=== PATIENT | male | born 1955 | race Caucasian/White ===

== ENCOUNTER → 2021-07-13 | Outpatient (CLI) | payer MEDICARE ==
[~2021-07-13] MED LIST: ASPI81CH PO; Amlodipine Besyl5 MG PO; BYDUREON P2 MG/0.65 SQ; DIABETA PO; EXENATIDE SUBQ; lisinopril 10 mg tab PO
[2021-07-13 13:38] LABS: BASOPHILS ABSOLUTE AUTO 0.04 K/mm3 (0.00-0.23); BASOPHILS PERCENT AUTO 1 % (0-2); EOSINOPHILS ABSOLUTE AUTO 0.22 K/mm3 (0.00-0.68); EOSINOPHILS PERCENT AUTO 3 % (0-6); Hematocrit 37.2 % (37.0-53.0); Hemoglobin 11.7 g/dL (13.5-17.5); IMMATURE GRAN ABSOLUTE AUTO 0.01 K/mm3 (0.00-0.10); IMMATURE GRAN PERCENT AUTO 0 % (0-1); LYMPHOCYTES ABSOLUTE AUTO 1.04 K/mm3 (0.84-5.20); LYMPHOCYTES PERCENT AUTO 16 % (21-46); MONOCYTES ABSOLUTE AUTO 0.47 K/mm3 (0.16-1.47); MONOCYTES PERCENT AUTO 7 % (4-13); Mean Corpuscular HGB 29.3 pg (26.0-34.0); Mean Corpuscular HGB Conc 31.5 g/dL (31.5-36.5); Mean Corpuscular Volume 93 fL (80-100); Mean Platelet Volume 9.4 fL (9.1-12.4); NEUTROPHILS ABSOLUTE AUTO 4.84 K/mm3 (1.96-9.15); NEUTROPHILS PERCENT AUTO 73 % (41-73); Platelet Count 259 K/mm3 (150-400); RDW Coefficient Variation 12.6 % (11.7-14.2); RDW Standard Deviation 43.6 fL (35.1-46.3); Red Blood Cell Count 3.99 M/mm3 (4.30-5.90); White Blood Cell Count 6.62 K/mm3 (4.00-11.30)
[2021-07-13 14:28] LABS: Protein, Urine Random 889.2 mg/dL (0.0-11.9); Protein/Creat Ratio, Ur Random 6.2
[2021-07-13 16:26] LABS: Albumin, Blood 3.1 g/dL (3.4-5.0); Anion Gap 6 mmol/L (6-16); Blood Urea Nitrogen 23 mg/dL (8-24); Bun/Creatinine Ratio 8.1 (12.0-20.0); CO2, Blood 26 mmol/L (21-32); Calcium, Blood 8.8 mg/dL (8.5-10.1); Chloride, Blood 105 mmol/L (98-108); Creatinine, Blood 2.83 mg/dL (0.60-1.20); Glomerular Filtration Rate 22 (60-); Glucose, Blood 141 mg/dL (70-99); Phosphorus, Blood 4.1 mg/dL (2.5-4.9); Potassium, Blood 4.3 mmol/L (3.5-5.5); Sodium, Blood 137 mmol/L (136-145)
== END | disposition home or self-care (01) ==
LOC: LAB 12:57 → LAB SHORT 12:57
PROVIDERS: Internal Medicine
DX: N18.4 Chronic kidney disease, stage 4 (severe) (principal)
CPT/HCPCS: 36415; 80069; 82570; 84156; 85025

== ENCOUNTER 2021-09-26 16:40 | Emergency (ER) | payer MEDICARE ==
[~2021-09-26] VITALS: Ht 175.3 cm; Wt 81.7 kg
[2021-09-26 17:27] LABS: BASOPHILS ABSOLUTE AUTO 0.01 K/mm3 (0.00-0.23); BASOPHILS PERCENT AUTO 0 % (0-2); EOSINOPHILS ABSOLUTE AUTO 0.01 K/mm3 (0.00-0.68); EOSINOPHILS PERCENT AUTO 0 % (0-6); Hematocrit 36.5 % (37.0-53.0); Hemoglobin 12.4 g/dL (13.5-17.5); IMMATURE GRAN ABSOLUTE AUTO 0.02 K/mm3 (0.00-0.10); IMMATURE GRAN PERCENT AUTO 0 % (0-1); LYMPHOCYTES ABSOLUTE AUTO 0.46 K/mm3 (0.84-5.20); LYMPHOCYTES PERCENT AUTO 9 % (21-46); MONOCYTES ABSOLUTE AUTO 0.36 K/mm3 (0.16-1.47); MONOCYTES PERCENT AUTO 7 % (4-13); Mean Corpuscular Volume 88 fL (80-100); Mean Platelet Volume 9.8 fL (9.1-12.4); NEUTROPHILS ABSOLUTE AUTO 4.57 K/mm3 (1.96-9.15); NEUTROPHILS PERCENT AUTO 84 % (41-73); Platelet Count 262 K/mm3 (150-400); RDW Coefficient Variation 13.7 % (11.7-14.2); RDW Standard Deviation 42.8 fL (35.1-46.3); Red Blood Cell Count 4.14 M/mm3 (4.30-5.90); White Blood Cell Count 5.43 K/mm3 (4.00-11.30)
[2021-09-26] MEDS ORDERED: PANTOPRAZOLE SO40 M2 PO (18:20)
[2021-09-26] MEDS ORDERED: HYDCHL25 PO (18:21)
[2021-09-26] MEDS ORDERED: GLYB2.5 PO (18:22)
[2021-09-26 18:36] LABS: Influenza A, PCR NEGATIVE (NEGATIVE); Influenza B, PCR NEGATIVE (NEGATIVE); Resp Syncytial Virus, PCR NEGATIVE (NEGATIVE)
[2021-09-26 18:43] LABS: SARS-Cov-2 (COVID-19) PCR, MMC POSITIVE (NEGATIVE)
[2021-09-26 18:51] LABS: Source, Urine Clean Catch
[2021-09-26 18:54] LABS: Bilirubin, Urine Neg (Neg); Blood, Urine Neg (Neg); Glucose Qualitative, Urine Neg (Neg); Ketones, Urine Neg (Neg); Leukocyte Esterase, Urine Neg (Neg); Nitrite, Urine Neg (Neg); Protein, Urine 4+ (Neg); Urobilinogen, Urine NORM (Normal)
[2021-09-26 19:01] LABS: Appearance, Urine Hazy (Clear); Bacteria Many /hpf; Color, Urine Pale Yellow (P-Yellow); Red Blood Cells, Urine 0-2 /hpf (0-2); Squamous Epithelial Cells Few /hpf (Few); White Blood Cells, Urine 0-2 /hpf (0-5)
[2021-09-26 19:02] LABS: Mucus Light (0-Heavy)
[2021-09-26 19:54] LABS: Albumin, Blood 2.8 g/dL (3.4-5.0); Albumin/Globulin Ratio 0.6 (0.8-1.8); Bilirubin, Total 0.4 mg/dL (0.1-1.0); Bun/Creatinine Ratio 22.9 (12.0-20.0); Calcium, Blood 8.5 mg/dL (8.5-10.1); Creatinine, Blood 3.58 mg/dL (0.60-1.20); Globulin, Blood 4.5 g/dL (2.2-4.0); Phosphorus, Blood 4.3 mg/dL (2.5-4.9); Potassium, Blood 3.5 mmol/L (3.5-5.5); Total Protein, Blood 7.3 g/dL (6.4-8.2)
== END 2021-09-26 21:50 | disposition home or self-care (01) ==
LOC: ER 16:40
PROVIDERS: Physician Assistant
DX: U07.1 COVID-19 (principal); I12.9 Hypertensive chronic kidney disease with stage 1 through stage 4 chronic kidney disease, or unspecified chronic kidney disease; E11.22 Type 2 diabetes mellitus with diabetic chronic kidney disease; N18.9 Chronic kidney disease, unspecified; Z79.899 Other long term (current) drug therapy; Z79.82 Long term (current) use of aspirin
CPT/HCPCS: 0241U; 36415; 71045; 80053; 81001; 83690; 83735; 84100; 85025; 87086; 93005; 93010; 99284-25; J7030

== ENCOUNTER → 2021-09-30 | Outpatient (CLI) | payer MEDICARE ==
[~2021-09-30] MED LIST changes: +GLYB2.5 PO; +HYDCHL25 PO; +PANTOPRAZOLE SO40 M2 PO
[2021-09-30 15:01] LABS: BASOPHILS ABSOLUTE AUTO 0.01 K/mm3 (0.00-0.23); BASOPHILS PERCENT AUTO 0 % (0-2); EOSINOPHILS ABSOLUTE AUTO 0.02 K/mm3 (0.00-0.68); EOSINOPHILS PERCENT AUTO 0 % (0-6); Hematocrit 32.1 % (37.0-53.0); Hemoglobin 11.1 g/dL (13.5-17.5); IMMATURE GRAN ABSOLUTE AUTO 0.02 K/mm3 (0.00-0.10); IMMATURE GRAN PERCENT AUTO 0 % (0-1); LYMPHOCYTES ABSOLUTE AUTO 0.54 K/mm3 (0.84-5.20); LYMPHOCYTES PERCENT AUTO 8 % (21-46); MONOCYTES ABSOLUTE AUTO 0.33 K/mm3 (0.16-1.47); MONOCYTES PERCENT AUTO 5 % (4-13); Mean Corpuscular HGB 30.2 pg (26.0-34.0); Mean Corpuscular HGB Conc 34.6 g/dL (31.5-36.5); Mean Corpuscular Volume 87 fL (80-100); Mean Platelet Volume 12.7 fL (9.1-12.4); NEUTROPHILS ABSOLUTE AUTO 5.77 K/mm3 (1.96-9.15); NEUTROPHILS PERCENT AUTO 86 % (41-73); Platelet Count 149 K/mm3 (150-400); RDW Coefficient Variation 14.1 % (11.7-14.2); RDW Standard Deviation 42.4 fL (35.1-46.3); Red Blood Cell Count 3.68 M/mm3 (4.30-5.90); White Blood Cell Count 6.69 K/mm3 (4.00-11.30)
[2021-09-30 15:46] LABS: Albumin, Blood 2.6 g/dL (3.4-5.0); Albumin/Globulin Ratio 0.7 (0.8-1.8); Bilirubin, Total 0.4 mg/dL (0.1-1.0); Bun/Creatinine Ratio 19.2 (12.0-20.0); Calcium, Blood 8.1 mg/dL (8.5-10.1); Creatinine, Blood 3.13 mg/dL (0.60-1.20); Globulin, Blood 3.9 g/dL (2.2-4.0); Potassium, Blood 3.8 mmol/L (3.5-5.5); Total Protein, Blood 6.5 g/dL (6.4-8.2)
== END | disposition home or self-care (01) ==
LOC: LAB 14:56 → LAB SHORT 14:56
PROVIDERS: Physician Assistant
DX: E86.0 Dehydration (principal)
CPT/HCPCS: 80053; 85025

== ENCOUNTER → 2022-01-15 | Outpatient (CLI) | payer MEDICARE ==
[2022-01-15 13:53] LABS: BASOPHILS ABSOLUTE AUTO 0.04 K/mm3 (0.00-0.23); BASOPHILS PERCENT AUTO 1 % (0-2); EOSINOPHILS ABSOLUTE AUTO 0.24 K/mm3 (0.00-0.68); EOSINOPHILS PERCENT AUTO 4 % (0-6); Hematocrit 30.4 % (37.0-53.0); Hemoglobin 9.9 g/dL (13.5-17.5); IMMATURE GRAN ABSOLUTE AUTO 0.03 K/mm3 (0.00-0.10); IMMATURE GRAN PERCENT AUTO 1 % (0-1); LYMPHOCYTES ABSOLUTE AUTO 1.17 K/mm3 (0.84-5.20); LYMPHOCYTES PERCENT AUTO 19 % (21-46); MONOCYTES ABSOLUTE AUTO 0.55 K/mm3 (0.16-1.47); MONOCYTES PERCENT AUTO 9 % (4-13); Mean Corpuscular HGB 31.9 pg (26.0-34.0); Mean Corpuscular HGB Conc 32.6 g/dL (31.5-36.5); Mean Corpuscular Volume 98 fL (80-100); Mean Platelet Volume 10.1 fL (9.1-12.4); NEUTROPHILS ABSOLUTE AUTO 4.11 K/mm3 (1.96-9.15); NEUTROPHILS PERCENT AUTO 67 % (41-73); Platelet Count 232 K/mm3 (150-400); RDW Coefficient Variation 12.9 % (11.7-14.2); RDW Standard Deviation 45.8 fL (35.1-46.3); White Blood Cell Count 6.14 K/mm3 (4.00-11.30)
[2022-01-15 15:54] LABS: Albumin, Blood 3.6 g/dL (3.4-5.0); Anion Gap 9 mmol/L (6-16); Blood Urea Nitrogen 55 mg/dL (8-24); Bun/Creatinine Ratio 12.7 (12.0-20.0); CO2, Blood 19 mmol/L (21-32); Calcium, Blood 8.8 mg/dL (8.5-10.1); Chloride, Blood 106 mmol/L (98-108); Creatinine, Blood 4.34 mg/dL (0.60-1.20); Glomerular Filtration Rate 14 (60-); Glucose, Blood 210 mg/dL (70-99); Phosphorus, Blood 5.9 mg/dL (2.5-4.9); Potassium, Blood 4.6 mmol/L (3.5-5.5); Sodium, Blood 134 mmol/L (136-145)
== END | disposition home or self-care (01) ==
LOC: LAB SHORT 13:11
PROVIDERS: Internal Medicine Nephrology
DX: I12.9 Hypertensive chronic kidney disease with stage 1 through stage 4 chronic kidney disease, or unspecified chronic kidney disease (principal); N18.4 Chronic kidney disease, stage 4 (severe)
CPT/HCPCS: 36415; 80069; 85025

== ENCOUNTER → 2022-04-07 | Outpatient (CLI) | payer MEDICARE | END | disposition home or self-care (01) | LOC: PLD 08:44 → LAB SHORT 08:44 | DX: D49.2 Neoplasm of unspecified behavior of bone, soft tissue, and skin (principal) | CPT/HCPCS: 88305 ==

== ENCOUNTER 2022-05-13 22:23 | Inpatient (IN) | payer MEDICARE ==
[~2022-05-13] VITALS: Ht 172.7 cm; Wt 89.5 kg
[~2022-05-13 22:23] MED LIST changes: +AMLO10 PO; -Amlodipine Besyl5 MG PO
[2022-05-13 22:43] LABS: BASOPHILS ABSOLUTE AUTO 0.01 K/mm3 (0.00-0.23); BASOPHILS PERCENT AUTO 0 % (0-2); EOSINOPHILS ABSOLUTE AUTO 0.01 K/mm3 (0.00-0.68); EOSINOPHILS PERCENT AUTO 0 % (0-6); Hematocrit 29.4 % (37.0-53.0); Hemoglobin 9.8 g/dL (13.5-17.5); IMMATURE GRAN ABSOLUTE AUTO 0.02 K/mm3 (0.00-0.10); IMMATURE GRAN PERCENT AUTO 0 % (0-1); LYMPHOCYTES ABSOLUTE AUTO 0.39 K/mm3 (0.84-5.20); LYMPHOCYTES PERCENT AUTO 5 % (21-46); MONOCYTES ABSOLUTE AUTO 0.27 K/mm3 (0.16-1.47); MONOCYTES PERCENT AUTO 4 % (4-13); Mean Corpuscular HGB 32.1 pg (26.0-34.0); Mean Corpuscular HGB Conc 33.3 g/dL (31.5-36.5); Mean Corpuscular Volume 96 fL (80-100); NEUTROPHILS ABSOLUTE AUTO 7.03 K/mm3 (1.96-9.15); NEUTROPHILS PERCENT AUTO 91 % (41-73); Platelet Count 258 K/mm3 (150-400); RDW Coefficient Variation 13.2 % (11.7-14.2); RDW Standard Deviation 46.8 fL (35.1-46.3); Red Blood Cell Count 3.05 M/mm3 (4.30-5.90); White Blood Cell Count 7.73 K/mm3 (4.00-11.30)
[2022-05-13] MEDS ORDERED: GLYBURIDE5 M2 PO (22:46)
[2022-05-13] MEDS ORDERED: HYDCHL25 PO (22:46)
[2022-05-13] MEDS ORDERED: GEMFIBROZIL600 MG PO (22:46)
[2022-05-13] MEDS ORDERED: CARVEDILOL6.25 MG PO (22:47)
[2022-05-13] MEDS ORDERED: ALLOPURINOL100 M1 PO (22:47)
[2022-05-13 22:50] LABS: Calcium, Ionized (POC) 1.18 mmol/L (1.10-1.46); Chloride (POC) 105 mmol/L (98-108); Creatinine (POC) 5.2 mg/dL (0.8-1.3); Glucose (ISTAT POC) 113 mg/dL (70-99); Hemoglobin (POC) 9.9 g/dL (13.5-17.5); Sodium (POC) 133 mmol/L (135-148); Total CO2 (POC) 19 mmol/L (21-32)
[2022-05-13 22:56] LABS: Albumin, Blood 3.8 g/dL (3.4-5.0); Albumin/Globulin Ratio 0.9 (0.8-1.8); Bilirubin, Total 0.3 mg/dL (0.1-1.0); Bun/Creatinine Ratio 12.7 (12.0-20.0); Creatinine, Blood 5.05 mg/dL (0.60-1.20); Globulin, Blood 4.1 g/dL (2.2-4.0); Potassium, Blood 5.2 mmol/L (3.5-5.5); Total Protein, Blood 7.9 g/dL (6.4-8.2)
[2022-05-13 23:02] LABS: Magnesium, Blood 2.8 mg/dL (1.6-2.4)
[2022-05-14 01:11] LABS: BASOPHILS PERCENT AUTO 0 % (0-2); EOSINOPHILS ABSOLUTE AUTO 0.02 K/mm3 (0.00-0.68); EOSINOPHILS PERCENT AUTO 0 % (0-6); Hematocrit 27.2 % (37.0-53.0); Hemoglobin 8.9 g/dL (13.5-17.5); IMMATURE GRAN ABSOLUTE AUTO 0.01 K/mm3 (0.00-0.10); IMMATURE GRAN PERCENT AUTO 0 % (0-1); LYMPHOCYTES ABSOLUTE AUTO 0.58 K/mm3 (0.84-5.20); LYMPHOCYTES PERCENT AUTO 9 % (21-46); MONOCYTES PERCENT AUTO 5 % (4-13); Mean Corpuscular HGB 31.7 pg (26.0-34.0); Mean Corpuscular HGB Conc 32.7 g/dL (31.5-36.5); Mean Corpuscular Volume 97 fL (80-100); Mean Platelet Volume 9.7 fL (9.1-12.4); NEUTROPHILS ABSOLUTE AUTO 5.32 K/mm3 (1.96-9.15); NEUTROPHILS PERCENT AUTO 85 % (41-73); Platelet Count 222 K/mm3 (150-400); RDW Coefficient Variation 13.2 % (11.7-14.2); Red Blood Cell Count 2.81 M/mm3 (4.30-5.90); White Blood Cell Count 6.23 K/mm3 (4.00-11.30)
[2022-05-14 01:27] LABS: Source, Urine Clean Catch
[2022-05-14 01:30] LABS: Bilirubin, Urine Neg (Neg); Blood, Urine Neg (Neg); Glucose Qualitative, Urine Neg (Neg); Ketones, Urine Neg (Neg); Leukocyte Esterase, Urine Neg (Neg); Nitrite, Urine Neg (Neg); Protein, Urine 4+ (Neg); Urobilinogen, Urine NORM (Normal)
[2022-05-14 01:34] LABS: Appearance, Urine Clear (Clear); Color, Urine Yellow (P-Yellow)
[2022-05-14 01:42] LABS: Albumin, Blood 3.3 g/dL (3.4-5.0); Bilirubin, Total 0.2 mg/dL (0.1-1.0); Bun/Creatinine Ratio 12.2 (12.0-20.0); Calcium, Blood 8.6 mg/dL (8.5-10.1); Creatinine, Blood 4.98 mg/dL (0.60-1.20); Globulin, Blood 3.4 g/dL (2.2-4.0); Potassium, Blood 4.9 mmol/L (3.5-5.5); Total Protein, Blood 6.7 g/dL (6.4-8.2)
[2022-05-14 01:52] LABS: Bacteria Not Seen /hpf; Red Blood Cells, Urine Not Seen /hpf (0-2); Squamous Epithelial Cells Few /hpf (Few); White Blood Cells, Urine 0-2 /hpf (0-5)
[2022-05-14 01:53] LABS: Amorphous Light (0-Heavy); Granular Casts 0-2 /lpf (0)
--- NOTE | 2022-05-14 06:46 | NUR ---
PT ARRIVED TO UNIT @0244. VS OBTAINED, 2ND DEG TYPE II BLOCK ON TELEMETRY - NOTED IN ED. 30S-60S AT REST. OTHER VSS, DENIES SYMPTOMS. WHEN OBTAINED POC GLUCOSE THIS AM NOTED PT CONFUSED AND SLURRING WORDS AND BLOOD SUGAR 22. PT HAD PULLED OUT IV RUNNING D5/BICARB. NEW IV PLACED AND 1 AMP GIVEN AND IMPROVEMENT IN ALL SYMPTOMS. PT MOVED FROM Q2 POC GLUCOSE BACK TO Q1 THIS AM FOR CLOSER MONITORING. AT BEDSIDE. WILL PASS ON TO DAY RN.
[2022-05-14 09:12] LABS: CPK Creatine Kinase 276 U/L (39-308)
--- NOTE | 2022-05-14 10:44 | NUR ---
ASSUMED CARE OF PT AT 0700 TODAY. FSBS HAVE BEEN TRENDING DOWN AND CARDIOLOGY/NEPHROLOGY HAVE NOT BEEN CONSULTED FOR MR CASTRO. DR NULL CONTACTED BY THIS RN AND NEW ORDERS RECEIVED.
[2022-05-14] MEDS ORDERED: LOSA50 PO (11:45)
[2022-05-14] MEDS ORDERED: CATAPRES0.1 MG PO (11:45)
[2022-05-14] MEDS ORDERED: C COMPLEX1000 M1 PO (11:46)
[2022-05-14] MEDS ORDERED: SENNA LAXATIVE8.6 MG PO (11:46)
[2022-05-14] MEDS ORDERED: Saw Palmetto160 MG PO (11:47)
[2022-05-14] MEDS ORDERED: VITAMIN D325 MC3 PO (11:48)
--- NOTE | 2022-05-14 17:51 | NUR ---
PT'S FSBS REMAINED UNSTABLE T/O MOST OF THE SHIFT. DR CLARKE AND DR CORTEZ CONSULTED TODAY. RENAL US AND ECHO COMPLETED. PT IS NOT AN IMMEDIATE CANNIDATE FOR PACEMAKER PLACEMENT, PER DR CORTEZ, PT IS ALLOWED TO EACH THIS AFTERNOON. FSBS APPEARS TO BE MORE STABLE WITH PT ABLE TO EAT AND D10 GTT AT 100MLS/HR. HR NOTED TO BE IN THE 30s WHEN PT IS AT REST AND IN THE 70s WHEN PT IS UP MOVING ABOUT. PT DENIES CHEST PAIN/PRESSURE, DIZZINESS/LIGHTHEADEDNESS, OR ANY OTHER SYMPTOMS. VSS. WILL CONTINUE TOMONITOR FSBS CLOSELY, PT BECOMES CONFUSED WHEN FSBS DROPS BELOW 60. BED ALARM ON FOR SAFETY. CALL LIGHT IN REACH, WILL CONTINUE TO MONITOR AND GIVE REPORT TO NOC SHIFT RN.
--- NOTE | 2022-05-15 02:22 | NUR ---
UPDATE GLUCOSE CHESCKED AROUND 2200, CAME BACK CRITICALLY LOW AT 32, PATIENT GIVEN 25mls OF D50. GLULCOSE RECHECKED AT 2209 AND WAS STABILIZED AT 103. GLUCOSE WAS CHECKED AROUND 0000 AND CAME BACK CRITICALLY LOW AGAIN AT 24. THIS RN CALLED DERMATOLOGIST MANAGING PARTNER TO ROOM. AMP OF D50 ADMINISTERED. ICU DERMATOLOGIST MANAGING PARTNER AT BEDSIDE. ICU DERMATOLOGIST MANAGING PARTNER CALLED HOSPITALIST, ORDERS RECIEVED FOR ADDITIONAL AMP OF D50 AND GLUCAGON. PATIENT'S GLUCOSE UP TO 278. NO OTHER ORDERS RECIEVED OR UPDATES AT THIS TIME.
[2022-05-15 04:05] LABS: Hematocrit 24.2 % (37.0-53.0); Mean Corpuscular HGB 32.3 pg (26.0-34.0); Mean Corpuscular HGB Conc 33.1 g/dL (31.5-36.5); Mean Corpuscular Volume 98 fL (80-100); Mean Platelet Volume 10.1 fL (9.1-12.4); Platelet Count 223 K/mm3 (150-400); RDW Coefficient Variation 13.2 % (11.7-14.2); RDW Standard Deviation 47.8 fL (35.1-46.3); Red Blood Cell Count 2.48 M/mm3 (4.30-5.90); White Blood Cell Count 6.23 K/mm3 (4.00-11.30)
[2022-05-15 04:25] LABS: Alanine Aminotransfer (ALT/SGP 14 U/L (12-78); Albumin, Blood 2.8 g/dL (3.4-5.0); Albumin/Globulin Ratio 0.9 (0.8-1.8); Alk Phos 60 U/L (50-136); Anion Gap 10 mmol/L (6-16); Aspartate Aminotrans (AST/SGOT 14 U/L (12-37); Bilirubin, Total 0.4 mg/dL (0.1-1.0); Blood Urea Nitrogen 59 mg/dL (8-24); CO2, Blood 21 mmol/L (21-32); Calcium, Blood 7.5 mg/dL (8.5-10.1); Chloride, Blood 103 mmol/L (98-108); Creatinine, Blood 4.93 mg/dL (0.60-1.20); Ferritin, Serum 165 ng/mL (26-388); Globulin, Blood 3.2 g/dL (2.2-4.0); Glomerular Filtration Rate 12 (60-); Glucose, Blood 89 mg/dL (70-99); Iron Serum 49 ug/dL (65-175); Percent Saturation 16.8 % (20.0-50.0); Phosphorus, Blood 5.2 mg/dL (2.5-4.9); Potassium, Blood 4.3 mmol/L (3.5-5.5); Sodium, Blood 134 mmol/L (136-145); Total Iron Binding Capacity 292 ug/dL (250-450)
[2022-05-15 04:37] LABS: BASOPHILS PERCENT MAN 0 % (0-2); EOSINOPHILS ABSOLUTE MAN 0.24 K/mm3 (0.00-0.68); EOSINOPHILS PERCENT MAN 4 % (0-6); LYMPHOCYTES ABSOLUTE MAN 0.56 K/mm3 (0.84-5.20); LYMPHOCYTES PERCENT MAN 9 % (21-46); MONOCYTES ABSOLUTE MAN 0.43 K/mm3 (0.16-1.47); MONOCYTES PERCENT MAN 7 % (4-13); NEUTROPHILS ABSOLUTE MAN 4.98 K/mm3 (1.96-9.15); SEG NEUTROPHILS PERCENT MAN 80 % (41-73); TOTAL CELLS COUNTED 100
--- NOTE | 2022-05-15 06:45 | NUR ---
SHIFT SUMMARY PATIENT ALERT AND ORIENTED, ABLE TO MAKE NEEDS KNOWN TO STAFF. BP STABLE, BRADYCARDIA LOW MID 30s WHILE SLEEPING. REMAINS ON RA WITH O2 SAT >90%. LABILE BLOOD SUGARS OVER THE SHIFT. SEE PREVIOUS NOTES/EMAR. PATIENT GETS SLIGHTLY CONFUSED AND DIAPHORETIC WHEN GLUCOSE IS LOW. MULITPLE SNACKS/ENSURES GIVEN TO ASSIST WITH KEEPING BLOOD SUGAR UP WELL MEDS GIVEN PER EMAR. PATIENT IS A 1 PERSON STANDBY ASSIST TO BATHROOM. AT BEDSIDE FOR ASSISTANCE. ADEQUATE URINE/BOWEL OUTPUT THIS SHIFT. D10 INFUSING. NO OTHER SIGNIFICANT CHANGES THIS SHIFT, WILL REPORT TO DAY SHIFT RN.
--- NOTE | 2022-05-15 17:35 | NUR ---
NO ACUTE EVENTS T/O SHIFT. PT HR HAS IMPROVED, AVERAGING 50-60s T/O THE DAY. PTs FSBS HAVE CLIMBED INTO THE 300s AND D10 INFUSION IS STOPPED AT 1515. PT HAS REMIANED ALERT AND ORIENTED X 4 T/O THE DAY. NEPHROLOGY AND CARDIOLOGY ROUNDED ON PT TODAY. PT'S AT BEDSIDE. NO CHANGES IN PT CONDITION TO REPORT. CALL LIGHT IN REACH, WILL CONTINUE TO MONITOR AND GIVE REPORT TO NOC SHIFT RN.
[2022-05-16 05:25] LABS: Hematocrit 27.6 % (37.0-53.0); Hemoglobin 8.9 g/dL (13.5-17.5); Mean Corpuscular HGB 31.3 pg (26.0-34.0); Mean Corpuscular HGB Conc 32.2 g/dL (31.5-36.5); Mean Corpuscular Volume 97 fL (80-100); Mean Platelet Volume 9.6 fL (9.1-12.4); Platelet Count 252 K/mm3 (150-400); RDW Coefficient Variation 13.2 % (11.7-14.2); RDW Standard Deviation 46.7 fL (35.1-46.3); Red Blood Cell Count 2.84 M/mm3 (4.30-5.90); White Blood Cell Count 4.77 K/mm3 (4.00-11.30)
[2022-05-16 06:01] LABS: Albumin, Blood 3.1 g/dL (3.4-5.0); Albumin/Globulin Ratio 0.9 (0.8-1.8); Bilirubin, Total 0.2 mg/dL (0.1-1.0); Bun/Creatinine Ratio 11.9 (12.0-20.0); Creatinine, Blood 4.7 mg/dL (0.60-1.20); Globulin, Blood 3.6 g/dL (2.2-4.0); Potassium, Blood 4.2 mmol/L (3.5-5.5); Total Protein, Blood 6.7 g/dL (6.4-8.2)
--- NOTE | 2022-05-16 06:18 | NUR ---
NOC SHIFT SUMMARY PT SLEPT WELL OVERNIGHT. ORIENTED X3, UNSURE OF YEAR OR DATE. VSS PER PT TREND. SLIGHTLY HYPERTENSIVE WITH BPS IN THE 150S. SR W/PVCS OR 2ND DEG TYPE II ON TELEMETRY. ON RA. POC GLUCOSE ELEVATED IN THE 300S AT START OF SHIFT, Q2 POC GLUCOSE CHECKS. NOTIFIED DR. FERNANDEZ AND ONE TIME INSULIN ORDER RECEIVED (SEE EMAR FOR DETAILS). PT REMAINED ABOVE 150 OVERNIGHT. NO COMPLAINTS OF PAIN OR DISCOMFORT. WILL PASS ON TO DAY RN
--- NOTE | 2022-05-16 12:10 | NUR ---
DR KENNEDY NOTIFIED OF FSBS >300 PRIOR TO LUNCH. ORDERS RECEIVED FOR S/S INSULIN.
--- NOTE | 2022-05-16 17:30 | NUR ---
PT'S HR AND FSBS HAVE REMAINED STABLE T/O THE DAY. HYPERTENSION HAS BEEN NOTED AND DR CLARKE IS ADJUSTING PT'S MEDICATIONS. PT IS NO LONGER HAVING PERIODS OF CONFUSION, HYPOGLYCEMIA OR BRADYCARDIA. PT USES CALL LIGHT FOR NEEDS. NO OTHER CHANGES IN PT CONDITION TODAY. CALL LIGHT IN REACH, WILL CONTINUE TO MONITOR AND GIVE REPORT TO NOC SHIFT RN.
[2022-05-17 03:51] LABS: BASOPHILS ABSOLUTE AUTO 0.04 K/mm3 (0.00-0.23); BASOPHILS PERCENT AUTO 1 % (0-2); EOSINOPHILS ABSOLUTE AUTO 0.34 K/mm3 (0.00-0.68); EOSINOPHILS PERCENT AUTO 6 % (0-6); Hematocrit 28.9 % (37.0-53.0); Hemoglobin 9.4 g/dL (13.5-17.5); IMMATURE GRAN ABSOLUTE AUTO 0.02 K/mm3 (0.00-0.10); IMMATURE GRAN PERCENT AUTO 0 % (0-1); LYMPHOCYTES ABSOLUTE AUTO 0.99 K/mm3 (0.84-5.20); LYMPHOCYTES PERCENT AUTO 18 % (21-46); MONOCYTES ABSOLUTE AUTO 0.56 K/mm3 (0.16-1.47); MONOCYTES PERCENT AUTO 10 % (4-13); Mean Corpuscular HGB 31.6 pg (26.0-34.0); Mean Corpuscular HGB Conc 32.5 g/dL (31.5-36.5); Mean Corpuscular Volume 97 fL (80-100); Mean Platelet Volume 9.3 fL (9.1-12.4); NEUTROPHILS ABSOLUTE AUTO 3.48 K/mm3 (1.96-9.15); NEUTROPHILS PERCENT AUTO 64 % (41-73); Platelet Count 236 K/mm3 (150-400); RDW Coefficient Variation 13.2 % (11.7-14.2); RDW Standard Deviation 46.8 fL (35.1-46.3); Red Blood Cell Count 2.97 M/mm3 (4.30-5.90); White Blood Cell Count 5.43 K/mm3 (4.00-11.30)
[2022-05-17 04:15] LABS: Albumin, Blood 3.1 g/dL (3.4-5.0); Anion Gap 5 mmol/L (6-16); Blood Urea Nitrogen 49 mg/dL (8-24); Bun/Creatinine Ratio 11.1 (12.0-20.0); CO2, Blood 24 mmol/L (21-32); Chloride, Blood 107 mmol/L (98-108); Creatinine, Blood 4.41 mg/dL (0.60-1.20); Glomerular Filtration Rate 14 (60-); Glucose, Blood 181 mg/dL (70-99); Phosphorus, Blood 3.7 mg/dL (2.5-4.9); Potassium, Blood 4.1 mmol/L (3.5-5.5); Sodium, Blood 136 mmol/L (136-145)
--- NOTE | 2022-05-17 05:45 | NUR ---
SHIFT SUMMARY PATIENT IS ALERT AND ORIENTED X4. 02 SATS >95% ON RA, DENIES SOB. HR SR, 2ND DEGREE TYPE 2 BLOCK, STRIPS SAVED IN CHART, HR DOWN TO 50s BUT DID NOT SUSTAIN, AVERAGE IN THE 60s. BP STABLE. PATIENT CONTINENT, AND INDEPENDENT WITH REPOSITIONING IN BED. CALL LIGHT IN REACH.
--- NOTE | 2022-05-17 18:44 | NUR ---
SHIFT SUMMARY PT IS A/Ox4 AND FOLLOWS DIRECTIONS GIVEN BY STAFF. PT HAS BEEN INCREASINGLY STABLE WITH BOTH HEART AND KIDNEY FUNCTION IMPROVING OVER THE COURSE OF THE SHIFT. PT SEEN BY DR. KENNEDY AND DR. COREAS WHO FEEL COMFORTABLE UPGRADING THE P'S STATUS TO MED/TELE. PT HAS HAD NO REPORTS OF CP/PRESSUE OR EPISODES OF HYPOGLYCEMIA. POSSIBLE DC TOMMORROW IF PT CONTINUES TO IMPROVE. PT MAINTAINS SPO2>95% ON RA WITH NO SOB OR DYSPNEA NOTED. BP HAS BEEN CONTROLLED WITH PO HYDRALAZINE. VSS AND NADN T/O THE SHIFT
[2022-05-18 04:19] LABS: Hematocrit 29.9 % (37.0-53.0); Hemoglobin 9.7 g/dL (13.5-17.5); Mean Corpuscular HGB 31.7 pg (26.0-34.0); Mean Corpuscular HGB Conc 32.4 g/dL (31.5-36.5); Mean Corpuscular Volume 98 fL (80-100); Mean Platelet Volume 9.4 fL (9.1-12.4); Platelet Count 261 K/mm3 (150-400); RDW Coefficient Variation 13.3 % (11.7-14.2); RDW Standard Deviation 47.5 fL (35.1-46.3); Red Blood Cell Count 3.06 M/mm3 (4.30-5.90); White Blood Cell Count 6.44 K/mm3 (4.00-11.30)
[2022-05-18 04:50] LABS: Albumin, Blood 3.2 g/dL (3.4-5.0); Albumin/Globulin Ratio 0.9 (0.8-1.8); Bilirubin, Total 0.3 mg/dL (0.1-1.0); Bun/Creatinine Ratio 9.9 (12.0-20.0); Calcium, Blood 9.2 mg/dL (8.5-10.1); Creatinine, Blood 4.86 mg/dL (0.60-1.20); Globulin, Blood 3.5 g/dL (2.2-4.0); Potassium, Blood 4.2 mmol/L (3.5-5.5); Total Protein, Blood 6.7 g/dL (6.4-8.2)
--- NOTE | 2022-05-18 05:53 | NUR ---
SHIFT SUMMARY PATIENT ALERT AND ORIENTED THROUGH THE NIGHT, THIS AM PATIENT IS CONFUSED, UNABLE TO STATE YEAR, MONTH, CITY OR WHERE HE IS. DOES RECOGNIZE HIS . NO OTHER NEURO DEFICITS, EQUAL STRENGTH AND PUPILS EQUAL. CBG 130. CALLED AND MADE HER AWARE OF CONFUSION, NO ORDERS AT THIS TIME. 02 SATS >95% ON RA. HR SR 70s, BP STABLE. BED ALARM ON. WITH FURTHER DISCUSSION WITH THE PATIENT HAS EPISODES OF CONFUSION AT HOME AND HAS A HISTORY OF A TIA.
[2022-05-18 08:18] LABS: Albumin, Blood 3.3 g/dL (3.4-5.0); Anion Gap 9 mmol/L (6-16); Blood Urea Nitrogen 48 mg/dL (8-24); Bun/Creatinine Ratio 9.9 (12.0-20.0); CO2, Blood 21 mmol/L (21-32); Calcium, Blood 9.1 mg/dL (8.5-10.1); Chloride, Blood 108 mmol/L (98-108); Creatinine, Blood 4.87 mg/dL (0.60-1.20); Glomerular Filtration Rate 12 (60-); Glucose, Blood 135 mg/dL (70-99); Phosphorus, Blood 3.7 mg/dL (2.5-4.9); Potassium, Blood 4.3 mmol/L (3.5-5.5); Sodium, Blood 138 mmol/L (136-145)
[2022-05-18] MEDS ORDERED: AMLO5 PO (11:26)
[2022-05-18] MEDS ORDERED: Calcium Carbon500 MG PO (11:27)
[2022-05-18] MEDS ORDERED: HYDR100 PO (11:28)
[2022-05-18] MEDS ORDERED: INSULIN GL100 UNIT/2 SC (11:30)
[2022-05-18] MEDS ORDERED: HUMALOG KW100 UNIT/1 SC (11:31)
--- NOTE | 2022-05-18 12:15 | NUR ---
Spiritual care visit conducted. Pt is sitting up in bed and alert. Pt's spouse, Ally is bedside. They tell me about pt's medical problems and the d/c plan for this afternoon. 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 They tell me about their personal struggles and how they are leaning into their rui as they go along. I listen empathically, reinforce helpful attitudes and practices and provide gentle marriage and family counselor and prayer. They both respond well and show signs of being encouraged in their rui.
--- NOTE | 2022-05-18 13:45 | NUR ---
DISCHARGE SUMMARY PT WAS A/Ox3-4 AND FOLLOWS DIRECTIONS GIVEN BY STAFF. PT AND SPOUSE RECEIVED EXTENSIVE EDUCATION ON PT'S NEW MEDS, MED ADMINISTRATION, DISEASE PROCESS, AND REMINDER OF ALL FOLLOW UP VISITS. PT AND SPOUSE ALSO RECEIVED EXTENSIVE WRITTEN INFORMATION ABOUT THE MATERIAL LISTED ABOVE. PT AND SPOUSE EXPRESSED THEIR UNDERSTANDING OF ALL EDUCATION PROVIDED FOR ALL QUESTIONS WERE ANSWERED. VÍCTOR, JULIO CÉSAR UPON DC
== END 2022-05-18 13:43 | disposition home or self-care (01) | DRG 637 ==
LOC: ER 22:23 → ERHOLD 23:54 → PCU 05-14 02:45
PROVIDERS: Emergency Medicine; Internal Medicine; Internal Medicine Nephrology; ADMIT Internal Medicine
DX: E11.649 Type 2 diabetes mellitus with hypoglycemia without coma (principal); G93.41 Metabolic encephalopathy; I12.0 Hypertensive chronic kidney disease with stage 5 chronic kidney disease or end stage renal disease; E87.20 Acidosis, unspecified; N17.9 Acute kidney failure, unspecified; G45.9 Transient cerebral ischemic attack, unspecified; N18.5 Chronic kidney disease, stage 5; D63.1 Anemia in chronic kidney disease; E11.22 Type 2 diabetes mellitus with diabetic chronic kidney disease; T38.3X5A Adverse effect of insulin and oral hypoglycemic [antidiabetic] drugs, initial encounter; I44.1 Atrioventricular block, second degree; R00.1 Bradycardia, unspecified; F03.90 Unspecified dementia, unspecified severity, without behavioral disturbance, psychotic disturbance, mood disturbance, and anxiety; E11.319 Type 2 diabetes mellitus with unspecified diabetic retinopathy without macular edema; I44.0 Atrioventricular block, first degree; I08.1 Rheumatic disorders of both mitral and tricuspid valves; I72.9 Aneurysm of unspecified site; W18.30XA Fall on same level, unspecified, initial encounter; E86.9 Volume depletion, unspecified; E11.21 Type 2 diabetes mellitus with diabetic nephropathy; E78.00 Pure hypercholesterolemia, unspecified; E87.5 Hyperkalemia; K21.9 Gastro-esophageal reflux disease without esophagitis; E79.0 Hyperuricemia without signs of inflammatory arthritis and tophaceous disease; Z98.890 Other specified postprocedural states; Z79.899 Other long term (current) drug therapy; Z79.82 Long term (current) use of aspirin; Z79.811 Long term (current) use of aromatase inhibitors
CPT/HCPCS: 36415; 71045; 76770; 80047; 80053; 80069; 81001; 82550; 82728; 82947; 83540; 83550; 83735; 83880; 84484; 85007; 85014; 85025; 85027; 93005; 93010; 93306; 96365; 96372; 96375; 96376; 99285-25; A9270; C1751; G0378; J0610; J0881; J1610; J1644; J1815; J2405; J2916; J7030; J7070

== ENCOUNTER → 2023-01-12 | Outpatient (CLI) | payer MEDICARE ==
[~2023-01-12] MED LIST changes: +ALLOPURINOL100 M1 PO; +AMLO5 PO; +C COMPLEX1000 M1 PO; +CARVEDILOL6.25 MG PO; +CATAPRES0.1 MG PO; +Calcium Carbon500 MG PO; +GEMFIBROZIL600 MG PO; +GLYBURIDE5 M2 PO; +HUMALOG KW100 UNIT/1 SC; +HYDR100 PO; +INSULIN GL100 UNIT/2 SC; +LOSA50 PO; +SENNA LAXATIVE8.6 MG PO; +Saw Palmetto160 MG PO; +VITAMIN D325 MC3 PO
== END | disposition home or self-care (01) ==
LOC: PLD 08:09 → LAB SHORT 08:09
DX: D49.2 Neoplasm of unspecified behavior of bone, soft tissue, and skin (principal)
CPT/HCPCS: 88305

== ENCOUNTER → 2025-05-20 | Outpatient (CLI) | payer MEDICARE ==
[~2025-05-20] MED LIST changes: +DOXA4 PO; +NOVOLIN 70100 UNIT/3
[2025-05-20 17:53] LABS: BASOPHILS ABSOLUTE AUTO 0.04 K/mm3 (0.00-0.23); BASOPHILS PERCENT AUTO 1 % (0-2); EOSINOPHILS ABSOLUTE AUTO 0.06 K/mm3 (0.00-0.68); EOSINOPHILS PERCENT AUTO 1 % (0-6); Hematocrit 36.5 % (37.0-53.0); Hemoglobin 12.2 g/dL (13.5-17.5); IMMATURE GRAN ABSOLUTE AUTO 0.02 K/mm3 (0.00-0.10); IMMATURE GRAN PERCENT AUTO 0 % (0-1); LYMPHOCYTES ABSOLUTE AUTO 0.86 K/mm3 (0.84-5.20); LYMPHOCYTES PERCENT AUTO 10 % (21-46); MONOCYTES ABSOLUTE AUTO 0.75 K/mm3 (0.16-1.47); MONOCYTES PERCENT AUTO 9 % (4-13); Mean Corpuscular HGB Conc 33.4 g/dL (31.5-36.5); Mean Corpuscular Volume 91 fL (80-100); NEUTROPHILS ABSOLUTE AUTO 6.54 K/mm3 (1.96-9.15); NEUTROPHILS PERCENT AUTO 79 % (41-73); NRBC ABSOLUTE 0.00 K/mm3 (0.00-0.02); NRBC Auto 0.0 /100 WBC (0.0-0.2); Platelet Count 238 K/mm3 (150-400); RDW Coefficient Variation 13.2 % (11.7-14.2); RDW Standard Deviation 43.9 fL (35.1-46.3)
[2025-05-20 18:06] LABS: Alanine Aminotransfer (ALT/SGP 26.0 U/L (12-78); Albumin, Blood 3.4 g/dL (3.4-5.0); Albumin/Globulin Ratio 0.9 (0.8-1.8); Anion Gap 17.0 mmol/L (3-11); Aspartate Aminotrans (AST/SGOT 24.0 U/L (12-37); Bilirubin, Total 0.6 mg/dL (0.1-1.0); Blood Urea Nitrogen 82.0 mg/dL (8-24); CO2, Blood 29.0 mmol/L (21-32); Calcium, Blood 8.8 mg/dL (8.5-10.1); Chloride, Blood 90.0 mmol/L (98-108); Creatinine, Blood 7.69 mg/dL (0.60-1.20); Globulin, Blood 3.7 g/dL (2.2-4.0); Glucose, Blood 172.0 mg/dL (70-99); Potassium, Blood 3.7 mmol/L (3.5-5.5); Sodium, Blood 132.0 mmol/L (136-145); Total Protein, Blood 7.1 g/dL (6.4-8.2)
== END ==
LOC: LAB 17:50 → LAB SHORT 17:50
PROVIDERS: Student in an Organized Health Care Education/Training Program
DX: R53.83 Other fatigue (principal)
CPT/HCPCS: 80053; 85025

== ENCOUNTER 2025-05-24 12:45 | Inpatient (IN) | payer MEDICARE ==
[2025-05-24] VITALS (14 sets, daily range): BP systolic 118–154; BP diastolic 59–83
[~2025-05-24] VITALS: Ht 167.6 cm; Wt 65.8 kg
[2025-05-24] MEDS ORDERED: FentaNYL Citrate 50 MCG/ML 2 ML Injection IV ONE ×2 (13:40→13:55)
[2025-05-24 13:43] LABS: BASOPHILS ABSOLUTE AUTO 0.04 K/mm3 (0.00-0.23); BASOPHILS PERCENT AUTO 0 % (0-2); EOSINOPHILS ABSOLUTE AUTO 0.08 K/mm3 (0.00-0.68); EOSINOPHILS PERCENT AUTO 1 % (0-6); Hematocrit 37.7 % (37.0-53.0); Hemoglobin 12.4 g/dL (13.5-17.5); IMMATURE GRAN ABSOLUTE AUTO 0.05 K/mm3 (0.00-0.10); IMMATURE GRAN PERCENT AUTO 1 % (0-1); LYMPHOCYTES ABSOLUTE AUTO 0.98 K/mm3 (0.84-5.20); LYMPHOCYTES PERCENT AUTO 11 % (21-46); MONOCYTES ABSOLUTE AUTO 0.62 K/mm3 (0.16-1.47); MONOCYTES PERCENT AUTO 7 % (4-13); Mean Corpuscular HGB Conc 32.9 g/dL (31.5-36.5); Mean Corpuscular Volume 94 fL (80-100); NEUTROPHILS ABSOLUTE AUTO 7.50 K/mm3 (1.96-9.15); NEUTROPHILS PERCENT AUTO 81 % (41-73); NRBC ABSOLUTE 0.00 K/mm3 (0.00-0.02); NRBC Auto 0.0 /100 WBC (0.0-0.2); Platelet Count 279 K/mm3 (150-400); RDW Coefficient Variation 12.5 % (11.7-14.2); RDW Standard Deviation 43.3 fL (35.1-46.3)
[2025-05-24] MEDS ORDERED: Saw Palmetto160 MG (13:47)
[2025-05-24 14:08] LABS: Magnesium, Blood 2.3 mg/dL (1.6-2.4)
[2025-05-24 14:09] LABS: Alanine Aminotransfer (ALT/SGP 25.0 U/L (12-78); Albumin, Blood 3.4 g/dL (3.4-5.0); Albumin/Globulin Ratio 1.0 (0.8-1.8); Anion Gap 9.0 mmol/L (3-11); Aspartate Aminotrans (AST/SGOT 20.0 U/L (12-37); Bilirubin, Total 0.4 mg/dL (0.1-1.0); Blood Urea Nitrogen 81.0 mg/dL (8-24); CO2, Blood 35.0 mmol/L (21-32); Calcium, Blood 8.4 mg/dL (8.5-10.1); Chloride, Blood 90.0 mmol/L (98-108); Creatinine, Blood 6.46 mg/dL (0.60-1.20); Globulin, Blood 3.3 g/dL (2.2-4.0); Glucose, Blood 100.0 mg/dL (70-99); Potassium, Blood 2.8 mmol/L (3.5-5.5); Sodium, Blood 131.0 mmol/L (136-145); Total Protein, Blood 6.7 g/dL (6.4-8.2)
[2025-05-24] MEDS ORDERED: Rocuronium Bromide 10 MG/ML 5ML Injection IV ONE (14:12)
[2025-05-24] MEDS ORDERED: FentaNYL Citrate 50 MCG/ML 2 ML Injection ONE (14:13)
[2025-05-24] MEDS ORDERED: NS 1,000 ML IV SCH (14:20)
[2025-05-24] MEDS ORDERED: NS 500 ML IV SCH (14:25)
[2025-05-24] MEDS ORDERED: Bupivacaine 0.5% HCl 5 MG/ML 30MLVIAL ONE (14:30)
[2025-05-24] MEDS ORDERED: SuccINYLCHOLINE Chloride 100 MG/5 ML 5MLSYR ONE (14:39)
[2025-05-24] MEDS ORDERED: Midazolam HCl 1MG / ML 2ML Vial ONE (14:50)
[2025-05-24] MEDS ORDERED: Vancomycin (Pharmacy Consult) IV SCH (14:50)
[2025-05-24 14:53] LABS: Prothrombin Time Results 11.0 Sec (9.7-11.5)
[2025-05-24] MEDS ORDERED: CeFAZolin Sodium 2,000 MG in NS 100 ML IV SCH (14:55)
--- NOTE | 2025-05-24 14:57 | NUR ---
PT HAS 20G IV TO LEFT HAND THAT FLUSHES WELL AND FLOWS TO GRAVITY.
--- NOTE | 2025-05-24 15:10 | NUR ---
1445: Pt brought from ER to Day Surgery for procedure w/Dr. Keenan, accompanied by his . History, Chart, Medications and Allergies reviewed before start of procedure. Patient confirms NPO status and agrees with scheduled surgery. Pre-Op teaching done. Pt verbalizes understanding. Pt belongings with for safekeeping. PAS to left leg only, per Dr Keenan due to small wound vac in place to pt right heel.
[2025-05-24] MEDS ORDERED: Phenylephrine HCl 100 MCG/ML-NS 10MLSYR (1MG/10ML) ONE (15:23)
[2025-05-24] MEDS ORDERED: Labetalol HCL 5 MG/ML 4ML Injection (Single Dose) IV PRN (15:40)
[2025-05-24] MEDS ORDERED: HYDROmorphone HCl/Pf 1MG SYR IV PRN ×2 (15:40)
[2025-05-24] MEDS ORDERED: Ondansetron HCl 2 MG / ML 2ML Vial IV PRN (15:45)
[2025-05-24] MEDS ORDERED: FentaNYL Citrate 50 MCG/ML 2 ML Injection IV PRN ×2 (15:45)
[2025-05-24] MEDS ORDERED: Sugammadex Sodium 200 MG/2ML SDV (100 MG/ML) ONE (16:44)
--- NOTE | 2025-05-24 18:36 | NUR ---
POST-OP NEW POST-OP TO ROOM 210 @ 1805. PATIENT IS AOX3-4, SLOW RESPONSES TO QUESTIONS. POOR HISTORIAN. SPOUSE AT BEDSIDE ABLE TO GIVE SOME MEDICAL HISTORY. PERITONEAL DIALYSIS TUBE IN PLACE, UNABLE TO BE USED D/T INFECTION, PLANS FOR PERMACATH PLACEMENT FOR HD BY TUESDAY. PATIENT IS POST-OP FOR LEFT INGUINAL HERNIA REPAIR W/MESH. GAUZE AND TEGADERM TO LEFT GROIN IS C/D/I. PATIENT IS NPO EXCEPT FOR ICE CHIPS. PATIENT SELF PULLED NG TUBE OUT IN RECOVERY ROOM . VSS. BED ALARM IS ON. MED REC IS COMPLETE. RIGHT FOOT WITH WOUND, AND WOUND VAC, WOUND VAC REMOVED PRE-OP. PICTURES TAKEN OF RIGHT FOOT PRINTED IN CHART. DR. Kaufman IN TO ASSESS, REQUESTED PODIATRY TO LOOK AT FOOT. PATIENT DENIES PAIN AT THIS TIME. DENIES N/T, REPORTS SOME NAUSEA WILL MEDICATE PER EMAR. IV VANCO RUNNING. PER NEPHROLOGY NO IV FLUIDS AT THIS TIME UNLESS HYPOGLYCEMIC. SOPOUSE IN ROOM ORIENTED TO CALL LIGHT, BED IN LOW POSITION. CALL LIGHT IN REACH. REPORT TO ONCOMING ONCOLOGY RESEARCH RN.
--- NOTE | 2025-05-24 22:08 | NUR ---
NOTIFIED OF WOUND VAC *LATE ENTRY* DAY SHIFT ENTRY LEVEL BUYERALBERTO Ortega INFORMED THIS NURSE APPROX @[address] JIMÉNEZ HAD REACHED OUT TO HER INFORMING HER TO PLACE A FRESH WOUND VAC & STATED PT SHOULD BE GOOD UNTIL FOLLOW UP APPOINT AT DR HARDEN OFFICE AFTER NEW WOUND VAC PLACEMENT. CLEANSED FOOT & PLACED NEW WOUND VAC W/ENTRY LEVEL BUYERALBERTO Vickers APPROX @2144, NO LEAKS NOTED, SET TO CONTINUOUS SX @120MMHG.
[2025-05-24] MEDS ORDERED: Insulin Glargine-Yfgn 100 Unit/mL 3 ML SYR SC PRN (23:00)
--- NOTE | 2025-05-24 23:31 | NUR ---
EMESIS *LATE ENTRY* PT HAD 2 EPISODES 50ML YELLOW/GREEN EMESIS. DENIES NEED FOR NAUSEA MEDS. PT ALSO HAD 2 LIQUID STOOLS.
[2025-05-25] VITALS (13 sets, daily range): BP systolic 111–157; BP diastolic 54–74
[2025-05-25 05:11] LABS: BASOPHILS ABSOLUTE AUTO 0.03 K/mm3 (0.00-0.23); BASOPHILS PERCENT AUTO 0 % (0-2); EOSINOPHILS ABSOLUTE AUTO 0.02 K/mm3 (0.00-0.68); EOSINOPHILS PERCENT AUTO 0 % (0-6); Hematocrit 31.4 % (37.0-53.0); Hemoglobin 10.3 g/dL (13.5-17.5); IMMATURE GRAN ABSOLUTE AUTO 0.06 K/mm3 (0.00-0.10); IMMATURE GRAN PERCENT AUTO 0 % (0-1); LYMPHOCYTES ABSOLUTE AUTO 0.74 K/mm3 (0.84-5.20); LYMPHOCYTES PERCENT AUTO 5 % (21-46); MONOCYTES ABSOLUTE AUTO 0.57 K/mm3 (0.16-1.47); MONOCYTES PERCENT AUTO 4 % (4-13); Mean Corpuscular HGB Conc 32.8 g/dL (31.5-36.5); Mean Corpuscular Volume 93 fL (80-100); NEUTROPHILS ABSOLUTE AUTO 12.64 K/mm3 (1.96-9.15); NEUTROPHILS PERCENT AUTO 90 % (41-73); NRBC ABSOLUTE 0.00 K/mm3 (0.00-0.02); NRBC Auto 0.0 /100 WBC (0.0-0.2); Platelet Count 200 K/mm3 (150-400); RDW Coefficient Variation 12.9 % (11.7-14.2); RDW Standard Deviation 43.9 fL (35.1-46.3)
[2025-05-25 05:38] LABS: Magnesium, Blood 2.0 mg/dL (1.6-2.4)
[2025-05-25 05:39] LABS: Alanine Aminotransfer (ALT/SGP 14.0 U/L (12-78); Albumin, Blood 2.5 g/dL (3.4-5.0); Albumin/Globulin Ratio 0.9 (0.8-1.8); Anion Gap 9.0 mmol/L (3-11); Aspartate Aminotrans (AST/SGOT 16.0 U/L (12-37); Bilirubin, Total 0.4 mg/dL (0.1-1.0); Blood Urea Nitrogen 78.0 mg/dL (8-24); CO2, Blood 29.0 mmol/L (21-32); Calcium, Blood 7.3 mg/dL (8.5-10.1); Chloride, Blood 101.0 mmol/L (98-108); Creatinine, Blood 6.39 mg/dL (0.60-1.20); Globulin, Blood 2.7 g/dL (2.2-4.0); Glucose, Blood 101.0 mg/dL (70-99); Phosphorus, Blood 6.0 mg/dL (2.5-4.9); Potassium, Blood 3.3 mmol/L (3.5-5.5); Sodium, Blood 136.0 mmol/L (136-145); Total Protein, Blood 5.2 g/dL (6.4-8.2)
--- NOTE | 2025-05-25 07:35 | NUR ---
SHIFT SUMMARY POD 1-HERNIA REPAIR W/MESH. GAUZE & TEGADERM TO LLQ ABD C/D/I, NO SHADOWING NOTED. DENIES NAUSEA, HOWEVER HAD 2 EPISODES EMESIS THIS SHIFT-DENIES NEED FOR ANTIEMETIC. DENIES PAIN. HAD 2 MED LIQUID BROWN BM THIS SHIFT AROUND SAME TIME EACH EMESIS EPISODE HAPPENED. PT FORGETFUL & MENTATION WAXES & WANES. AOX2-3, SELF, TOWN, . FORGETFUL DATE, SITUATION, FORGETS TO USE CALL LIGHT & SETS BED ALARM OFF BY ATTEMPTING TO GET OOB W/O HELP. ACCIDENTLY PULLED OFF WOUND VAC DRESSING FROM R PLANTAR FOOT 1x, 2ND WOUND VAC DRESSING C/D/I & SET TO 120MMHG CONT SX. TOLERATED SIPS & CHIPS UNTIL 0000, HAS BEEN NPO SINCE FOR POSSIBLE PERMACATH PLACEMENT. CALL LIGHT & @BEDSIDE.
[2025-05-25] MEDS ORDERED: Enoxaparin 40 MG/0.4 ML SYR SC SCH (09:00)
[2025-05-25] MEDS ORDERED: Heparin Sodium,Porcine 5,000 UNIT/0.5 ML SDV SC SCH (09:00)
[2025-05-25] MEDS ORDERED: FLU VACC TS2025(65UP)/MF59C/PF 45 MCG/0.5 ML SYRINGE IM SCH (09:00)
[2025-05-25] MEDS ORDERED: Cholecalciferol 1000 Unit Tablet (=25MCG) PO SCH (09:00)
[2025-05-25] MEDS ORDERED: Heparin Sodium 5000 Units/ML 1ML MDV ONE (11:25)
[2025-05-25] MEDS ORDERED: Bupivacaine 0.5% HCl 5 MG/ML 30MLVIAL ONE (11:25)
--- NOTE | 2025-05-25 11:27 | NUR ---
ASSUMED CARE. PT A/O X 2-3 PT CONFUSED AT TIMES BUT IS ABLE TO FOLLOW DIRECTIONS WELL, C/O NEEDING TO PEE PT VERY ANXIIOUS ABOUT GETTING OUT OF BED, AT BEDSIDE TO ASSIST WITH CARE. PURWIC IN PLACE BUT PT DOESNT UNDERSTAND HOW TO USE, WILL CONT REDIRECTING PT IF NEEDED. 0800 DR ARNOLD IN AT BEDSIDE TO ASSESS, PT TO HAVE PERMACATH PLACED THIS AFTERNOON , CONSENT SIGNED. 0900 PT OOB TO BSC AND WAS ABLE TO URINATE 200ML, SHORTLY AFTER PT STARTED USING PURWIC.
[2025-05-25] MEDS ORDERED: FentaNYL Citrate 50 MCG/ML 2 ML Injection ONE (12:00)
[2025-05-25] MEDS ORDERED: Albuterol 2.5 MG/3 ML VIAL INH PRN (12:15)
[2025-05-25] MEDS ORDERED: FentaNYL Citrate 50 MCG/ML 2 ML Injection IV PRN ×2 (12:20)
[2025-05-25] MEDS ORDERED: HYDROmorphone HCl/Pf 1MG SYR IV PRN (12:20)
[2025-05-25] MEDS ORDERED: Ondansetron HCl 2 MG / ML 2ML Vial IV PRN (12:20)
--- NOTE | 2025-05-25 18:24 | NUR ---
SX FOR PERMACATH 1200 PT TAKEN [facility] FOR CATH PLACEMENT.
--- NOTE | 2025-05-25 18:25 | NUR ---
1320 RETURN FROM CATH PLACEMENT PT ARRIVED A/O X 2-3 SEEMS MORE ALERT AND ORIENTED THEN THIS AM. PT HAS NO C/O PAIN AND STATED IT ALL WENT GREAT AND HE FEELS REALLY GOOD. SITE IS CDI NO S/S OF BLEEDING NO SWELLING NOTED. PT STATES HE IS AWARE OF CATH AND WHY HE IS HERE. REENFORCED TO PT NOT TO PULL ON CATH, EDU NEEDED DUE TO HIS INCREASED DEMENTIA.
--- NOTE | 2025-05-25 18:28 | NUR ---
FAMILY AT BEDSIDE ASSISTING WITH PT MONIOTRING AND CARE. CURRENTLY PT HAVING ICE CHIPS WITH OUT ANY DIFFICULTY.
[2025-05-26 00:13] VITALS: BP 119/67
[2025-05-26 03:58] VITALS: BP 126/67
[2025-05-26 04:41] LABS: Albumin, Blood 2.2 g/dL (3.4-5.0); Anion Gap 11 mmol/L (3-11); Blood Urea Nitrogen 76 mg/dL (8-24); CO2, Blood 26 mmol/L (21-32); Calcium, Blood 6.9 mg/dL (8.5-10.1); Chloride, Blood 95 mmol/L (98-108); Creatinine, Blood 5.55 mg/dL (0.60-1.20); Glucose, Blood 99 mg/dL (70-99); Phosphorus, Blood 5.5 mg/dL (2.5-4.9); Potassium, Blood 2.9 mmol/L (3.5-5.5); Sodium, Blood 129 mmol/L (136-145); Vancomycin, Random 17.3 ug/mL
--- NOTE | 2025-05-26 05:20 | NUR ---
NOC SUMMARY- PT DENIES PAIN OR DISCOMFORT. PT HAD A MEDIUM FORMED BM THIS SHIFT. PT IS VOIDING. PT PERMACATH IS C/D/I. PT FOOT CONTINUES TO HAVE WOUND VAC. PT HAS NOT TAMPERED WITH FOOT THIS SHIFT. PT HAS BEEN RESTING COMFORTABLY. PT STAYED THE NIGHT. NO NEW ISSUES. CALL LIGHT IN REACH.
[2025-05-26 07:25] VITALS: BP 122/61
--- NOTE | 2025-05-26 15:05 | NUR ---
PT AGITATED SPOUSE MADE OTHER ARRANGEMENTS SO DOES NOT NEED TO LEAVE PT AT THIS TIME. WORKING ON CALMING PT DOWN. CALLED DR MAR AND OBTAINED ORDERS FOR 25 MG SEROQUEL, WHICH SPOUSE REPORTS HAS AT HOME. PT TOOK TAB WITHOUT DIFFICULTY WITH SIP OF WATER. SPOUSE SITTING ON BED W/PT, ATTEMPTING TO SOOTHE PT.
[2025-05-26 15:45] VITALS: BP 116/64
--- NOTE | 2025-05-26 16:07 | NUR ---
IV POTASSIUM SWITCHED TO PO DUE TO INABILITY TO TOLERATE MORE THAN 20MEQ'S AT THIS TIME - IV KCL DISCONTINED PER DR JARQUIN NEPHROLOGY
--- NOTE | 2025-05-26 17:07 | NUR ---
SUMMARY NO ACUTE CHANGES T/O SHIFT. PT ADVANCED TO REGULAR DIET PER ORDERS. PT'S K 2.9. DR Alee JARQUIN ORDERED 40 MEQ IV. NEW IV STARTED TO ADMINISTER BUT PT COULD NOT REMEMBER TO KEEP ARM STRAIGHT D/T COGNITIVE ISSUE, DESPITE WRAPPING IV. CONSTANT BEEP CAUSED INCREASED ANXIETY AND AGITATION. DR Alee JARQUIN CALLED AND PO POTASSIUM ORDERED INSTEAD. PT ALSO BECAME UPSET WHEN SPOUSE TALKED ABOUT GOING HOME TO TAKE CARE OF CHORES. OBTAINED ORDERED FOR SEROQUEL AND ADMINISTERED. SPOUSE MADE OTHER ARRANGEMENTS FOR CHORES SO COULD STAY WITH PATIENT. PT RESTING IN BED, SPOUSE BEDSIDE.
[2025-05-26 19:25] VITALS: BP 111/60
[2025-05-27] VITALS (15 sets, daily range): BP systolic 103–155; BP diastolic 56–80
--- NOTE | 2025-05-27 04:42 | NUR ---
SHIFT SUMMARY NO ACUTE EVENTS OVERNIGHT. CALL FROM DR. JARQUIN (NEPHROLOGY) TO DC PO POTASSIUM THEY WILL CORRECT HIS LEVELS DURING DIALYSIS TODAY. PT WITH INCREASED CONFUSION DURING SHIFT; PT CAREGIVER VERY EMOTIONAL WELL. SPIRITUAL CONSULT OFFERED AND ACCEPTED; ORDER PLACED. PT INCISION CDI; HD CATH WITH CHG DRESSING TO RIGHT CHEST WALL INTACT; WOUND VAC IN PLACE TO RIGHT FOOT WITH NO APPARENT ISSUES OVERNIGHT. PUREWICK IN PLACE. PT AND HOPEFUL FOR DC TODAY; DR. JARQUIN AWARE OF PT INCREASED CONFUSION AND DESIRE TO GO HOME.
[2025-05-27 04:48] LABS: Albumin, Blood 2.3 g/dL (3.4-5.0); Anion Gap 9 mmol/L (3-11); Blood Urea Nitrogen 75 mg/dL (8-24); CO2, Blood 26 mmol/L (21-32); Calcium, Blood 7.2 mg/dL (8.5-10.1); Chloride, Blood 98 mmol/L (98-108); Creatinine, Blood 5.41 mg/dL (0.60-1.20); Glucose, Blood 153 mg/dL (70-99); Phosphorus, Blood 3.8 mg/dL (2.5-4.9); Potassium, Blood 3.1 mmol/L (3.5-5.5); Sodium, Blood 130 mmol/L (136-145); Vancomycin, Random 13.2 ug/mL
--- NOTE | 2025-05-27 08:41 | NUR ---
PATIENT TRANSFERRED TO DIALYSIS VIA BED
--- NOTE | 2025-05-27 11:54 | NUR ---
PATIENT BACK TO ROOM FOLLOWING DIALYSIS
[2025-05-27] MEDS ORDERED: DOXY100 PO (13:30)
--- NOTE | 2025-05-27 14:33 | NUR ---
WOUND VAC PATIENT TO [place] HOME W/ HH TODAY. PATIENT W/ CHRONIC R FOOT WOUND W/ WOUND VAC IN PLACE. PATIENT SEES MD HARDEN FOR WOUND MANAGEMENT OUTPATIENT. PER PATIENTs , PATIENT WITH SCHEDULED APPOINTMENT TODAY AT 1600. MD HARDEN PLACES NEW WOUND VAC W/ EACH VISIT. DISCUSSED W/ MD TALLEY - ORDER RCVD TO REMOVE FACILITYs WOUND VAC AND PLACE A XEROFORM/GAUZE/KERLEX/NE WRAP DRESSING. PATIENT TO FOLLOW UP W/ MD HARDEN TODAY SCHEDULED TO PLACE A NEW WOUND VAC. PRIMARY RN MADAY AND CASE MANAGEMENT UPDATED.
--- NOTE | 2025-05-27 14:46 | NUR ---
DISCHARGE SUMMARY POD 3 L GROIN HERNIA REPAIR w/MESH. HX DEMEMTIA - A&O x2-3, EASILY REDIRECTABLE, VSS. HEMODIALYSIS THIS AM, R CHEST SITE, C/D/I. TOLERATING REGULAR DIET WELL. HAD DIALYSIS THIS AM. BOWEL TONES NORMOACTIVE, MILD ABD DISTENTION, STATES NO PAIN. L GROIN w/STERI STRIPS, C/D/I. FACILITY WOUND VAC REMOVED, DRESSING PLACED PER MD ORDER. PT TO FOLLOW UP w/MD HARDEN THIS AFTERNOON FOR WOUND VAC PLACEMENT. DISCHARGE INSTRUCTIONS REVIEWED & GIVEN, ESCORTED OUT VIA WC.
== END 2025-05-27 14:55 | disposition home or self-care (01) | DRG 350 ==
LOC: ER 12:45 → SURS 12:46
PROVIDERS: Emergency Medicine; Hospitalist; Surgery; ADMIT Internal Medicine
PROC: 0YU60JZ Supplement Left Inguinal Region with Synthetic Substitute, Open Approach (ICD-10-PCS; principal; 2025-05-24 15:00)
PROC: 5A1D70Z Performance of Urinary Filtration, Intermittent, Less than 6 Hours Per Day (ICD-10-PCS; 2025-05-25)
PROC: 3E03329 Introduction of Other Anti-infective into Peripheral Vein, Percutaneous Approach (ICD-10-PCS; 2025-05-25)
PROC: 0JH63XZ Insertion of Tunneled Vascular Access Device into Chest Subcutaneous Tissue and Fascia, Percutaneous Approach (ICD-10-PCS; 2025-05-25)
PROC: B5181ZA Fluoroscopy of Superior Vena Cava using Low Osmolar Contrast, Guidance (ICD-10-PCS; 2025-05-25)
PROC: 02HV33Z Insertion of Infusion Device into Superior Vena Cava, Percutaneous Approach (ICD-10-PCS; 2025-05-25)
PROC: 3E02340 Introduction of Influenza Vaccine into Muscle, Percutaneous Approach (ICD-10-PCS; 2025-05-25)
DX: K40.30 Unilateral inguinal hernia, with obstruction, without gangrene, not specified as recurrent (principal); G93.41 Metabolic encephalopathy; N18.6 End stage renal disease; I12.0 Hypertensive chronic kidney disease with stage 5 chronic kidney disease or end stage renal disease; E87.1 Hypo-osmolality and hyponatremia; E85.4 Organ-limited amyloidosis; F03.911 Unspecified dementia, unspecified severity, with agitation; E11.621 Type 2 diabetes mellitus with foot ulcer; L97.519 Non-pressure chronic ulcer of other part of right foot with unspecified severity; I68.0 Cerebral amyloid angiopathy; Z99.2 Dependence on renal dialysis; K21.9 Gastro-esophageal reflux disease without esophagitis; E11.22 Type 2 diabetes mellitus with diabetic chronic kidney disease; E87.6 Hypokalemia; R79.89 Other specified abnormal findings of blood chemistry; D63.1 Anemia in chronic kidney disease; R10.85 Abdominal pain of multiple sites; Z79.82 Long term (current) use of aspirin; Z79.899 Other long term (current) drug therapy; Z79.4 Long term (current) use of insulin; Z85.820 Personal history of malignant melanoma of skin
CPT/HCPCS: 36415; 71045; 74176; 77001; 80053; 80069; 80202; 82947; 83605; 83735; 84100; 85025; 85610; 87340; 93005; 93010; 94760; 96374; 96375; 99285-25; A9270; C1750; C1781; J0330; J0690; J1644; J1815; J2250; J2371; J2704; J3010; J3373; J3480; J7030; J7050

== ENCOUNTER 2025-08-05 13:36 | Emergency (ER) | payer MEDICARE ==
[~2025-08-05] VITALS: Ht 177.8 cm; Wt 79.4 kg
[~2025-08-05 13:36] MED LIST changes: +DOXY100 PO; +Saw Palmetto160 MG
[2025-08-05 13:51] VITALS: BP 170/90
== END 2025-08-05 19:17 | disposition left against medical advice (07) ==
LOC: ER 13:36
DX: T85.691A Other mechanical complication of intraperitoneal dialysis catheter, initial encounter (principal); Y82.8 Other medical devices associated with adverse incidents; I12.0 Hypertensive chronic kidney disease with stage 5 chronic kidney disease or end stage renal disease; E11.22 Type 2 diabetes mellitus with diabetic chronic kidney disease; N18.6 End stage renal disease; Z99.2 Dependence on renal dialysis; Z79.82 Long term (current) use of aspirin; Z79.4 Long term (current) use of insulin; Z79.899 Other long term (current) drug therapy
CPT/HCPCS: 74176; 99284-25

== ENCOUNTER 2025-08-06 09:32 | Day surgery (SDC) | payer MEDICARE ==
[2025-08-06] VITALS (8 sets, daily range): BP systolic 106–155; BP diastolic 61–79
[~2025-08-06] VITALS: Ht 172.7 cm; Wt 72.0 kg
[2025-08-06 10:40] LABS: BASOPHILS ABSOLUTE AUTO 0.04 K/mm3 (0.00-0.23); BASOPHILS PERCENT AUTO 1 % (0-2); EOSINOPHILS ABSOLUTE AUTO 0.19 K/mm3 (0.00-0.68); EOSINOPHILS PERCENT AUTO 3 % (0-6); Hematocrit 38.6 % (37.0-53.0); Hemoglobin 12.4 g/dL (13.5-17.5); IMMATURE GRAN ABSOLUTE AUTO 0.02 K/mm3 (0.00-0.10); IMMATURE GRAN PERCENT AUTO 0 % (0-1); LYMPHOCYTES ABSOLUTE AUTO 1.08 K/mm3 (0.84-5.20); LYMPHOCYTES PERCENT AUTO 18 % (21-46); MONOCYTES ABSOLUTE AUTO 0.35 K/mm3 (0.16-1.47); MONOCYTES PERCENT AUTO 6 % (4-13); Mean Corpuscular HGB Conc 32.1 g/dL (31.5-36.5); Mean Corpuscular Volume 98 fL (80-100); NEUTROPHILS ABSOLUTE AUTO 4.30 K/mm3 (1.96-9.15); NEUTROPHILS PERCENT AUTO 72 % (41-73); NRBC ABSOLUTE 0.00 K/mm3 (0.00-0.02); NRBC Auto 0.0 /100 WBC (0.0-0.2); Platelet Count 167 K/mm3 (150-400); RDW Coefficient Variation 14.2 % (11.7-14.2); RDW Standard Deviation 50.9 fL (35.1-46.3)
[2025-08-06 10:58] LABS: Alanine Aminotransfer (ALT/SGP 25.0 U/L (12-78); Albumin, Blood 4.0 g/dL (3.4-5.0); Albumin/Globulin Ratio 1.1 (0.8-1.8); Anion Gap 13.0 mmol/L (3-11); Aspartate Aminotrans (AST/SGOT 12.0 U/L (12-37); Bilirubin, Total 0.3 mg/dL (0.1-1.0); Blood Urea Nitrogen 78.0 mg/dL (8-24); CO2, Blood 20.0 mmol/L (21-32); Calcium, Blood 8.7 mg/dL (8.5-10.1); Chloride, Blood 105.0 mmol/L (98-108); Creatinine, Blood 6.28 mg/dL (0.60-1.20); Globulin, Blood 3.5 g/dL (2.2-4.0); Glucose, Blood 156.0 mg/dL (70-99); Potassium, Blood 5.2 mmol/L (3.5-5.5); Sodium, Blood 133.0 mmol/L (136-145); Total Protein, Blood 7.5 g/dL (6.4-8.2)
[2025-08-06] MEDS ORDERED: NS 1,000 ML IV SCH (14:40)
[2025-08-06] MEDS ORDERED: CeFAZolin Sodium 2,000 MG in NS 100 ML IV SCH (14:40)
--- NOTE | 2025-08-06 15:37 | NUR ---
ANDRE BETH RN AND THIS NURSE TO ER 7 TO PREOP PATIENT IN ROOM. IV PLACED, PATIENT COOPERATIVE.
[2025-08-06] MEDS ORDERED: Bupivacaine 0.5% HCl 5 MG/ML 30MLVIAL ONE (17:05)
[2025-08-06] MEDS ORDERED: HYDROcodone 5-APAP 325 TAB PO PRN (18:50)
--- NOTE | 2025-08-06 19:35 | NUR ---
Patient up to Ambulate independently. Gait steady. Discharge instructions reviewed with patient. Patient verbalizes understanding. Copy given to patient to take home. Patient States Post-Procedure ride home has been arranged. Discharged via wheelchair to private car for ride home. HEMODIALYSIS TOMORROW PER DR IRELAND
== END 2025-08-06 18:00 | disposition home or self-care (01) ==
LOC: ER 09:32 → ORSCMMR 17:10 → ER 17:10 → SDS 17:10 → ORSCMMR 18:00
PROVIDERS: Physician Assistant; Surgery
PROC: 0WPG03Z Removal of Infusion Device from Peritoneal Cavity, Open Approach (ICD-10-PCS; principal; 2025-08-06 17:00)
DX: T85.611A Breakdown (mechanical) of intraperitoneal dialysis catheter, initial encounter (principal); I12.0 Hypertensive chronic kidney disease with stage 5 chronic kidney disease or end stage renal disease; E11.22 Type 2 diabetes mellitus with diabetic chronic kidney disease; N18.6 End stage renal disease; F03.90 Unspecified dementia, unspecified severity, without behavioral disturbance, psychotic disturbance, mood disturbance, and anxiety; K59.00 Constipation, unspecified; N40.0 Benign prostatic hyperplasia without lower urinary tract symptoms; Z79.4 Long term (current) use of insulin; Z79.82 Long term (current) use of aspirin; Z79.899 Other long term (current) drug therapy; Z99.2 Dependence on renal dialysis; Y81.1 Therapeutic (nonsurgical) and rehabilitative general- and plastic-surgery devices associated with adverse incidents
CPT/HCPCS: 80053; 85025; 99284; A9270; J0690; J1100; J2371; J2405; J2704; J7030